=== PATIENT | male | born 1965 | race Hispanic/Latino ===

== ENCOUNTER 2020-10-06 00:40 | Inpatient (IN) | payer MEDICAID, OTHER ==
[~2020-10-06] VITALS: Ht 152.4 cm; Wt 73.5 kg
[2020-10-06] VITALS (18 sets, daily range): BP systolic 104–151; BP diastolic 60–100
[2020-10-06 01:37] LABS: BASOPHILS % (AUTO) 0.8 % (0.0-5.0); EOSINOPHILS % (AUTO) 5.2 % (0.0-8.0); HEMATOCRIT 40.4 % (42-54); LYMPHOCYTES % (AUTO) 12.9 % (21.0-51.0); MEAN CORPUSCULAR HEMOGLOBIN 27.8 pg (27.0-33.0); MEAN CORPUSCULAR HGB CONC 33.2 g/dL (32.0-36.0); MEAN CORPUSCULAR VOLUME 83.8 fL (79-99); MONOCYTES % (AUTO) 5.5 % (3.0-13.0); NEUTROPHILS % (AUTO) 75.4 % (40.0-77.0); PLATELET COUNT (AUTO) 226 K/uL (130-400); RED BLOOD CELL COUNT(AUTO) 4.82 MIL/uL (4.50-6.20); RED CELL DISTRIBUTION WIDTH 13.2 % (11.0-15.5); WHITE BLOOD COUNT (AUTO) 6.2 K/uL (4.8-10.8)
[2020-10-06 01:50] LABS: INR 0.97 (0.85-1.15); PROTHROMBIN TIME 10.6 SEC (9.6-11.6)
[2020-10-06 01:51] LABS: PARTIAL THROMBOPLASTIN TIME 27.6 SEC (26.3-35.5)
[2020-10-06 01:55] LABS: POTASSIUM 3.6 mmol/L (3.5-5.1)
[2020-10-06 01:59] LABS: ALBUMIN 4.1 g/dL (3.5-5.0); BILIRUBIN,TOTAL 0.3 mg/dL (0.2-1.0); TOTAL PROTEIN, SERUM 8.1 g/dL (6.0-8.3)
[2020-10-06] MEDS ORDERED: ACETAMINOPHEN 325 MG TAB PO PRN ×2 (03:45)
[2020-10-06] MEDS ORDERED: 0.9%NACL 1000ML 1,000 ML IV ONE (03:45)
[2020-10-06] MEDS ORDERED: NITROGLYCERIN 0.4 MG SL TAB SL PRN (03:45)
[2020-10-06] MEDS ORDERED: ONDANSETRON 4MG INJ IV PRN (03:45)
[2020-10-06 04:07] LABS: CREATINE KINASE, TOTAL 220 U/L (21-232); MYOGLOBIN 50 ng/mL (10-92); TROPONIN I < 0.04 ng/mL (0.00-0.06)
[2020-10-06] MEDS: 0.9%NACL 1000ML 1,000 ML IV SCH ×3 (05:55→23:45)
[2020-10-06 06:02] LABS: HEMATOCRIT 37.1 % (42-54)
[2020-10-06] MEDS ORDERED: PANTOPRAZOLE 40MG INJ 80 MG in 0.9%NACL 100ML 100 ML IV SCH (09:00)
[2020-10-06] MEDS ORDERED: PROPOFOL 10 MG/ML 20ML VIAL IV ONE (09:31)
[2020-10-06] MEDS ORDERED: LIDOCAINE HCL 1% 20 ML VIAL ONE (09:31)
[2020-10-06 11:38] LABS: HEMATOCRIT 38.3 % (42-54)
[2020-10-06] MEDS ORDERED: PEG 3350/NA SULF,BICARB,CL/KCL 4000 ML SOLN PO SCH (17:00)
[2020-10-06] MEDS: PANTOPRAZOLE 40MG INJ 80 MG in 0.9%NACL 100ML 100 ML IV SCH (19:15)
[2020-10-07] VITALS (15 sets, daily range): BP systolic 96–139; BP diastolic 58–79
[2020-10-07 04:33] LABS: BASOPHILS % (AUTO) 0.8 % (0.0-5.0); EOSINOPHILS % (AUTO) 7.8 % (0.0-8.0); HEMATOCRIT 33.6 % (42-54); LYMPHOCYTES % (AUTO) 24.1 % (21.0-51.0); MEAN CORPUSCULAR HEMOGLOBIN 27.9 pg (27.0-33.0); MEAN CORPUSCULAR HGB CONC 32.7 g/dL (32.0-36.0); MEAN CORPUSCULAR VOLUME 85.3 fL (79-99); MONOCYTES % (AUTO) 10.2 % (3.0-13.0); NEUTROPHILS % (AUTO) 56.8 % (40.0-77.0); PLATELET COUNT (AUTO) 168 K/uL (130-400); RED BLOOD CELL COUNT(AUTO) 3.94 MIL/uL (4.50-6.20); RED CELL DISTRIBUTION WIDTH 13.3 % (11.0-15.5); WHITE BLOOD COUNT (AUTO) 3.6 K/uL (4.8-10.8)
[2020-10-07 04:42] LABS: BILIRUBIN,TOTAL 0.3 mg/dL (0.2-1.0); MAGNESIUM 2.9 mg/dL (1.80-2.40); POTASSIUM 3.4 mmol/L (3.5-5.1); TOTAL PROTEIN, SERUM 6.2 g/dL (6.0-8.3)
[2020-10-07] MEDS: PANTOPRAZOLE 40MG INJ 80 MG in 0.9%NACL 100ML 100 ML IV SCH (09:21)
[2020-10-07] MEDS ORDERED: LIDOCAINE HCL-MPF 2% 5ML VIAL ONE (12:10)
[2020-10-07] MEDS ORDERED: PROPOFOL 10 MG/ML 20ML VIAL IV ONE (12:10)
== END 2020-10-07 15:40 | disposition home or self-care (01) | DRG 241 ==
LOC: EDH 00:40 → EDHIP 00:41 → 4DH 04:18
PROVIDERS: ADMIT Hospitalist; ATTEND Hospitalist
PROC: 0DB68ZX Excision of Stomach, Via Natural or Artificial Opening Endoscopic, Diagnostic (ICD-10-PCS; principal; 2020-10-07)
PROC: 0DJD8ZZ Inspection of Lower Intestinal Tract, Via Natural or Artificial Opening Endoscopic (ICD-10-PCS; 2020-10-07)
DX: K25.4 Chronic or unspecified gastric ulcer with hemorrhage (principal); K57.31 Diverticulosis of large intestine without perforation or abscess with bleeding; I10 Essential (primary) hypertension; I25.10 Atherosclerotic heart disease of native coronary artery without angina pectoris; Z87.19 Personal history of other diseases of the digestive system; Z20.822 Contact with and (suspected) exposure to COVID-19
CPT/HCPCS: 36415; 43239; 45378; 80053; 82550; 83605; 83735; 83874; 84484; 85014; 85018; 85025; 85610; 85730; 86850; 86900; 86901; 87426; 93005; A4606; C9113; G0378; J2704; J3490; J7030; U0003